=== PATIENT | female | born 1995 | race Caucasian/White ===

== ENCOUNTER 2016-06-19 09:49 | Day surgery (SDC) | payer OTHER ==
[2016-06-19] MEDS ORDERED: ALBUTEROL SULFATE 0.083% NEB 2.5 MG/3 ML AMPUL NEB ONE (10:39)
[2016-06-19] MEDS ORDERED: OXYMETAZOLINE HCL 0.05% NASAL SPRAY 15 ML BOTTLE ONE (10:41)
[2016-06-19] MEDS ORDERED: LIDOCAINE 1%/EPINEPHRINE INJ 20 ML VIAL ONE (10:41)
[2016-06-19] MEDS ORDERED: FENTANYL CITRATE INJ/PF 100 MCG/2 ML AMPUL ONE (10:47)
[2016-06-19] MEDS ORDERED: MIDAZOLAM 2 MG/2 ML INJ ONE (10:47)
[2016-06-19] MEDS ORDERED: PROPOFOL INJ 200 MG/20 ML VIAL IV ONE (10:48)
[2016-06-19] MEDS ORDERED: SUCCINYLCHOLINE CHLORIDE INJ 200 MG/10 ML VIAL ONE (10:48)
[2016-06-19] MEDS ORDERED: ONDANSETRON HCL INJ/PF 4 MG/2 ML SDV ONE (10:48)
[2016-06-19] MEDS ORDERED: HYDROMORPHONE HCL INJ/PF 2 MG/ML AMPULE ONE (10:48)
[2016-06-19] MEDS ORDERED: DEXAMETHASONE SOD PHOS INJ 10 MG/1 ML VIAL ONE ×3 (10:48→14:15)
[2016-06-19] MEDS ORDERED: WATER FOR INJECTION,STERILE 10 ML SDV ONE ×2 (12:40→14:15)
[2016-06-19] MEDS ORDERED: HYDROCODONE/ACETAMINOPHEN 5-325 MG TABLET ONE (15:18)
--- NOTE | 2016-06-19 15:58 | SURGICARE OPERATIVE REPORT E ---
[facility] NAME: ALEX MONTOYA AGE: 20Y DATE OF SURGERY: 06/19/2016 ROOM: PREOPERATIVE DIAGNOSIS: CHRONIC PANSINUSITIS WITH NASAL POLYPOSIS. POSTOPERATIVE DIAGNOSES: CHRONIC PANSINUSITIS WITH NASAL POLYPOSIS. ALLERGIC FUNGAL SINUSITIS. OPERATION: Bilateral endoscopic maxillary antrostomies. Bilateral endoscopic complete ethmoidectomies. Bilateral endoscopic sphenoidotomies. Bilateral endoscopic frontal sinusotomies. CT-based image guidance for dissection along the orbits and the skull base on a case with diffuse nasal polyposis. SURGEON: SHAMAR JULIO M.D. ANESTHESIA: General endotracheal. ESTIMATED BLOOD LOSS: 150 mL. COMPLICATIONS: None. INTRAOPERATIVE FINDINGS: Bilateral pansinusitis with nasal polyposis which was worse on the right side. There were mostly sphenoethmoid polyposis that was found to be emanating from the right sphenoid sinus which was contained allergic mucin.. INDICATIONS FOR PROCEDURE: A 20-year-old woman with a chronic history of nasal obstruction that worse on the right side than on the left side. Examination under endoscopy revealed nasal polyposis with sphenoethmoid polyps occluding both nasal airways. She responded to a short course of steroids briefly, but her symptoms recurred shortly after. PROCEDURE IN DETAIL: The patient was met in the preoperative holding area. Her questions were answered and consent was verified. She was then brought back to the operating room and placed supine on the operating table and general endotracheal anesthesia was induced without difficulty. The table was turned and she was positioned for endoscopic sinus surgery. A [employer] Image Guidance headset was placed on her forehead and a recent CT of her sinuses was used to calibrate the image guidance system. Accuracy was then confirmed using external soft tissue landmarks. She was prepped and draped in the standard fashion. The nasal cavity was decongested with oxymetazoline. An operative time-out was performed. The initial part of the procedure was performed under 0-degree endoscopic guidance. Lidocaine 1% with 1:100,000 epinephrine was then infiltrated along the axilla of the middle turbinate bilaterally in the body of the middle turbinate and the sphenopalatine foramen region. The left side was approached first by lateralizing the inferior turbinate bone and medializing the middle turbinate. The uncinate process was incised and resected using a combination of a back-biting forceps and a powered microdebrider. The maxillary sinus ostium was identified and cannulated and expanded posteriorly using thru-cutting instruments and a powered microdebrider. The anterior ethmoidectomy was then carried out using a combination of curettes, polyp forceps and the powered microdebrider. The basal lamella of the middle turbinate was identified and the posterior ethmoid cavity was entered. The superior turbinate was identified as a landmark and the natural ostium of the sphenoid was easily located just posterior to it. This was enlarged with a straight mushroom punch. The superior lateral posterior ethmoid cavity was then opened with a series of curettes as the skull base was identified. I then turned my attention to the agger nasi which was incised with a Hajek punch in a transaxillary fashion. Agger nasi septations were then dissected from posterior to inferior with a right-angle curette. This exposed the frontal ostium. A 30-degree endoscope and curved instruments were then used to enlarge the ostium by removing the superior ethmoid septations. There was easy visualization and access to the frontal sinus. The left ethmoid cavity was then packed with Afrin and the right side was approached in a similar fashion by performing an uncinectomy, maxillary antrostomy, anterior ethmoidectomy and sphenoidotomy. As the sphenoidotomy was established, I noticed thick allergic mucin that was populating the right sphenoid sinus. A wide sphenoidotomy was then carried out using a mushroom punch and the sphenoid was copiously irrigated with saline and debrided of all allergic mucin. This was confirmed under endoscopic visualization. Similarly, the posterior ethmoidectomy was then completed, as was the agger nasi exposure. The right-sided frontal sinus was hypoplastic. It was identified with care using an image guided frontal sinus probe and enlarged from a posterior to anterior direction and the anterior aspect of the ostium was enlarged with a frontal sinus punch in order to avoid circumferential scarring. Both cavities were inspected and cleared of bony debris. There was good hemostasis bilaterally. The ethmoid cavity, nasal cavity and nasopharynx were irrigated with sterile saline and suctioned and Stammberger Sinu-Foam that was reconstituted with 10 mg of dexamethasone was placed in each ethmoid cavity as a spacer. The nasopharynx was once again suctioned prior to turning her over to the anesthesia team for reversal and extubation. She tolerated the procedure well. DICTATING PHYSICIAN: SHAMAR JULIO M.D. [id number] PHY#: [id number] ID: [id number] JOB#: [id number] ACCT: [id number] cc:SHAMAR JULIO M.D. >
== END 2016-06-19 16:16 | disposition home or self-care (01) ==
LOC: SC 09:49
PROVIDERS: ATTEND Otolaryngology
PROC: 099Q4ZZ Drainage of Right Maxillary Sinus, Percutaneous Endoscopic Approach (ICD-10-PCS; 2016-06-19)
PROC: 09TV4ZZ Resection of Left Ethmoid Sinus, Percutaneous Endoscopic Approach (ICD-10-PCS; 2016-06-19)
PROC: 09TU4ZZ Resection of Right Ethmoid Sinus, Percutaneous Endoscopic Approach (ICD-10-PCS; 2016-06-19)
PROC: 09BS4ZZ Excision of Right Frontal Sinus, Percutaneous Endoscopic Approach (ICD-10-PCS; 2016-06-19)
PROC: 09BT4ZZ Excision of Left Frontal Sinus, Percutaneous Endoscopic Approach (ICD-10-PCS; 2016-06-19)
PROC: 09CX4ZZ Extirpation of Matter from Left Sphenoid Sinus, Percutaneous Endoscopic Approach (ICD-10-PCS; 2016-06-19)
PROC: 09CW4ZZ Extirpation of Matter from Right Sphenoid Sinus, Percutaneous Endoscopic Approach (ICD-10-PCS; 2016-06-19)
PROC: 099R4ZZ Drainage of Left Maxillary Sinus, Percutaneous Endoscopic Approach (ICD-10-PCS; principal; 2016-06-19 11:15)
DX: J32.4 Chronic pansinusitis (principal); J33.0 Polyp of nasal cavity; J45.909 Unspecified asthma, uncomplicated; Z79.899 Other long term (current) drug therapy
CPT/HCPCS: 88304 ×2; 31256; 31255; 31276; 31287; J2250; J3010; J3490 ×3; J1170; J0330; J2405; J2704; J1100; 160